=== PATIENT | male | born 1975 | race Native Hawaiian/Other Pacific Islander ===

== ENCOUNTER 2020-10-01 12:21 | Emergency (ER) | payer OTHER ==
[~2020-10-01] VITALS: Ht 175.3 cm; Wt 106.6 kg
[2020-10-01 12:24] VITALS: TEMP 102.8
[2020-10-01 13:06] LABS: PLATELET COUNT 286 K/uL (142-355)
[2020-10-01 13:08] LABS: POTASSIUM 4.3 mmol/L (3.6-5.2)
[2020-10-01 14:24] VITALS: BP 135/69
== END 2020-10-01 14:24 | disposition home or self-care (01) ==
LOC: ED 12:21
PROVIDERS: Emergency Medicine
DX: R50.9 Fever, unspecified (principal); Z20.822 Contact with and (suspected) exposure to COVID-19
CPT/HCPCS: 36600; 80048; 81000; 82805; 85027; 87635; 96372; 99283; J0696; U0003

== ENCOUNTER 2020-10-03 13:46 | Outpatient (CLI) | payer OTHER | END 2020-10-03 19:04 | disposition home or self-care (01) | LOC: LABW 13:46 | PROVIDERS: ATTEND Nurse Practitioner Family | DX: R10.13 Epigastric pain (principal) | CPT/HCPCS: 36415; 80053; 82150; 83690; 86318 ==

== ENCOUNTER 2020-10-06 08:18 | Outpatient (CLI) | payer OTHER | END 2020-10-06 21:33 | disposition home or self-care (01) | LOC: US 08:18 | PROVIDERS: ATTEND Nurse Practitioner Family | DX: R10.13 Epigastric pain (principal); R94.4 Abnormal results of kidney function studies; R10.12 Left upper quadrant pain ==